=== PATIENT | female | born 1995 | race Caucasian/White ===

== ENCOUNTER 2018-11-19 05:59 | Day surgery (SDC) | payer OTHER, SELFPAY ==
[2018-11-19 06:31] LABS: Internal QC Validated? YES +Cl - CLEAR BKGD; Pregnancy, Urine Negative Negative
[2018-11-19 06:32] VITALS: BP 114/60; PULSE 69; RESP 18; TEMP 36.7; O2SAT 100; BMI 22.8
--- NOTE | 2018-11-19 07:25 | DCINST_ITS ---
Discharge Activity: May Not Drive, May not drive while taking narcotic pain medications., May Not Shower, Use Walker, Use Crutches Ice area for (Minutes): 20 - Apply ice behind right knee 20 minutes of each hour while awake. Weight Bearing Status: No weight bearing Keep extremity elevated above heart level: Operative Extremity Call your doctor if your incision/area has: Sudden Increased Bleeding Call your doctor if you observe: Fever of 101 or Higher, Shortness of breath, Dizziness, Chest pain, Increased palpitations (irregular heartbeat), Calf discomfort, Uncontrolled pain Cleanse incision/area with: Keep Dressing Clean & Dry Allergies/Adverse Reactions: Allergies No Known Allergies Allergy (Verified 11/19/18 06:31) Medications to take at Discharge Clear Skin Vitamin 2 cap PO DAILY 11/17/18 Spironolactone 100 mg PO QHS 11/17/18 Spironolactone [Aldactone] 50 mg PO DAILY 11/17/18 traMADol [Ultram] 50 mg PO Q4H PRN PRN 7 Days #28 tab 11/19/18 The following prescriptions were given: traMADol [Ultram] 50 mg PO Q4H PRN PRN 7 Days #28 tab PRN Reason: pain Primary Care Physician: Gerry Osorio MD [Primary Care Provider] - Test Results: Test results from this visit will be discussed in further detail at your follow- up appointment, if applicable. Please Follow Up With: Shanti Duran DPM - Please follow up next week at your previously scheduled post operative appointment. Proposed Discharge Date: 11/19/18
--- NOTE | 2018-11-19 07:25 | PCM.OPRPT ---
Report of Operation Date of Procedure: 11/19/18 Pre-Operative Diagnosis: R foot painful hardware, 5th metatarsal Post-Operative Diagnosis: same Surgery/Procedure Performed:: Right foot hardware removal, deep Description of Surgical Findings:: see dictation coppersmith helper: Romero Garcia Type of Anesthesia:: Local MAC Estimated Blood Loss (mL): minimal Description of Procedure: Indications: Pt is a 23 yo F who sustained a R 5th metatarsal avulsion fracture in the fall of 2017. She presented to my clinic several weeks after her injury and the avulsion was painful and displaced. She underwent ORIF of the 5th metatarsal in 05/26/2018. Her recovery was unremarkable and her bone healed well in good alignment. In the past several weeks she developed painful from the prominent hardware and presented to clinic for removal. All risks, complications, and alternatives were discussed with the patient, and the patient signed an informed consent. No guarantees were given. Procedure: On 11/19/2018, Destiny Swann was visually and verbally identified in the preoperative holding area. The consent form was again reviewed with the patient, as were all risks, complications, and alternatives and the patient wished to proceed with the proposed surgery. The right foot was marked as the correct operative extremity. The patient was brought to the operating room and placed on the operating room table in the lazy lateral position After induction by anesthesia, a surgical time out was performed and all present were in agreement. a pneumatic thigh tourniquet was then placed. At this time the right lower extremity was prepped and draped in the usual sterile fashion. after exsanguination with an esmarch the tourniquet was inflated to 300 mmHg. At this time attention was directed to the R lateral foot. Using a #15 blade an incision was made over the previous well healed surgical scar. The incision was bluntly carried deep through the subcutaneous tissues with careful attention paid to all bleeders, which were clamped and tied or bovied as necessary. All vital neurovascular structures were retracted. The plate and screws were visualized and removal in total and without incident. The incision was flushed with copious amounts of normal sterile saline. 3.0 vicryl was used for deep tissue and subcutaneous tissue, 3.0 prolene was used for skin. 10 cc of 0.5% Marcaine plain was injected at the surgical site. Adaptic and dry sterile saline was applied to the incision along with a multilayer compressive dressing and a well padded posterior splint. Total tourniquet time was 19 minutes with immediate capillary refill noted to all digits upon deflation. The patient tolerated the procedure and anesthesia well. The patient was then transported to the postanesthesia care unit by a member of the anesthesia team and myself with all vital signs stable and neurovascular status of the right lower extremity equal to pre-operative levels. At the end of the case all sponge, needle and instrument counts were found to be correct. Grafts/Implants Used: none - Complications none - Admit VTE Documentation VTE Present on Admission: No VTE Mechan Device Prophylaxis: SCD's, Knee High HANG Hose VTE Pharm Prophylaxis ordered?: Yes
[2018-11-19] MEDS: Cefazolin 2 GM in 0.9% Normal Saline 100 ML IV (07:36)
[2018-11-19] MEDS: Bupivacaine Mpf 0.5% 30 ML VIAL (08:05)
--- NOTE | 2018-11-19 08:13 | RAD_ITS ---
STUDY: X-RAY - RIGHT FOOT CLINICAL: Female, 23 years old. Status post hardware removal. TECHNIQUE: 3 view(s) of the foot. COMPARISON: Prior comparison studies are not available for review at this time. FINDINGS: Normal talus, calcaneus, and tarsal bones. Normal visualized subtalar, talonavicular, calcaneocuboid, tarsal and tarsometatarsal articulations. Normal metatarsi. Normal metatarsophalangeal joint of the great toe. Normal tibial and fibular sesamoid bones. Normal interphalangeal joint of the great toe. Normal phalanges of the great toe. Normal second through fifth metatarsophalangeal joints. Normal interphalangeal joints and phalanges of the lesser toes. The patient has a posterior splint. There is soft tissue swelling. RAD/Foot min 3 Views IMPRESSION: Status post hardware removal and placement of a posterior splint. Electronically Signed: Sis Swann MD at 9:14 EDT , Service support ,
[2018-11-19 08:15] VITALS: BP 114/60; BP 88/51; BP 94/54; PULSE 59; PULSE 65; RESP 16; TEMP 36.6; O2SAT 94; O2SAT 97
[2018-11-19 08:45] VITALS: BP 114/60; BP 93/45; PULSE 55; RESP 16; O2SAT 94
[2018-11-19 09:00] VITALS: BP 114/60; BP 90/53; PULSE 57; RESP 16; O2SAT 93
[2018-11-19 09:20] VITALS: BP 114/60; BP 91/53; PULSE 56; RESP 16; TEMP 36.6; O2SAT 96
[2018-11-19] MEDS: traMADol 50 MG Tablet PO (09:51)
[2018-11-19 10:30] VITALS: BP 114/60; BP 96/54; PULSE 55; RESP 16; TEMP 36.6; O2SAT 100
== END 2018-11-19 11:01 | disposition home or self-care (01) ==
LOC: SDC 06:00 → AC 06:02
PROVIDERS: Anesthesiology; Family Provider Family Medicine; PCP Family Medicine; Referring Provider Podiatrist Foot & Ankle Surgery; Visit Provider Podiatrist Foot & Ankle Surgery
PROC: (CPT 20680; principal; 2018-11-19 07:15)
DX: T84.84XA Pain due to internal orthopedic prosthetic devices, implants and grafts, initial encounter (principal)
CPT/HCPCS: 20680; 73630; 76000; 81025; J7120; J2405